=== PATIENT | male | born 1980 | race Two or more races ===

== ENCOUNTER 2024-06-24 16:12 | Emergency (ER) | payer OTHER ==
[~2024-06-24] VITALS: Ht 180.3 cm; Wt 104.3 kg
[2024-06-24] MEDS: ACETAMINOPHEN ES 500 MG TABLET PO ONE (16:38)
[2024-06-24 16:40] VITALS: TEMP 97.9
[2024-06-24 19:11] VITALS: BP 142/94; O2SAT 100
== END 2024-06-24 19:11 | disposition home or self-care (01) ==
LOC: ER 16:24
DX: M25.512 Pain in left shoulder (principal); M54.2 Cervicalgia; M25.552 Pain in left hip; M47.812 Spondylosis without myelopathy or radiculopathy, cervical region
CPT/HCPCS: 72125-TC; 73030-TC